=== PATIENT | male | born 1955 | race Caucasian/White ===

== ENCOUNTER 2023-11-19 09:15 | Emergency (ER) | payer OTHER ==
[~2023-11-19] VITALS: Ht 188 cm; Wt 113.4 kg
[2023-11-19] MEDS ORDERED: Lidocaine 2% Jelly Uro-Jet UR ONE (10:05)
[2023-11-19] MEDS ORDERED: Tranexamic Acid 1000 MG/10 ML 10ML Vial (SDV) TOP ONE (10:05)
[2023-11-19 10:20] LABS: BASOPHILS ABSOLUTE AUTO 0.09 K/mm3 (0.00-0.23); BASOPHILS PERCENT AUTO 0 % (0-2); EOSINOPHILS ABSOLUTE AUTO 0.04 K/mm3 (0.00-0.68); EOSINOPHILS PERCENT AUTO 0 % (0-6); Hematocrit 44.3 % (37.0-53.0); Hemoglobin 16.2 g/dL (13.5-17.5); IMMATURE GRAN ABSOLUTE AUTO 0.24 K/mm3 (0.00-0.10); IMMATURE GRAN PERCENT AUTO 1 % (0-1); LYMPHOCYTES ABSOLUTE AUTO 2.02 K/mm3 (0.84-5.20); LYMPHOCYTES PERCENT AUTO 10 % (21-46); MONOCYTES ABSOLUTE AUTO 0.58 K/mm3 (0.16-1.47); MONOCYTES PERCENT AUTO 3 % (4-13); Mean Corpuscular HGB 31.3 pg (26.0-34.0); Mean Corpuscular HGB Conc 36.6 g/dL (31.5-36.5); Mean Corpuscular Volume 86 fL (80-100); Mean Platelet Volume 9.6 fL (9.1-12.4); NEUTROPHILS ABSOLUTE AUTO 17.32 K/mm3 (1.96-9.15); NEUTROPHILS PERCENT AUTO 85 % (41-73); Platelet Count 279 K/mm3 (150-400); RDW Coefficient Variation 13.7 % (11.7-14.2); RDW Standard Deviation 42.4 fL (35.1-46.3); Red Blood Cell Count 5.18 M/mm3 (4.30-5.90); White Blood Cell Count 20.29 K/mm3 (4.00-11.30)
[2023-11-19 10:26] LABS: Source, Urine Foley catheter
[2023-11-19 10:38] LABS: Appearance, Urine Bloody (Clear); Bilirubin, Urine Neg (Neg); Blood, Urine 5+ (Neg); Color, Urine Red (P-Yellow); Glucose Qualitative, Urine 3+ (Neg); Ketones, Urine 1+ (Neg); Leukocyte Esterase, Urine 1+ (Neg); Nitrite, Urine Neg (Neg); Protein, Urine 4+ (Neg); Urobilinogen, Urine NORM (Normal)
[2023-11-19 10:38] LABS: International Normalized Ratio 3.02; Prothrombin Time Results 29.8 Sec (9.7-11.5)
[2023-11-19 10:42] LABS: Bacteria Not Seen /hpf; Red Blood Cells, Urine TNTC /hpf (0-2); Squamous Epithelial Cells Not Seen /hpf (Few)
[2023-11-19 10:43] LABS: Albumin, Blood 4.6 g/dL (3.4-5.0); Albumin/Globulin Ratio 1.2 (0.8-1.8); Bilirubin, Total 0.9 mg/dL (0.1-1.0); Bun/Creatinine Ratio 24.3 (12.0-20.0); Calcium, Blood 9.6 mg/dL (8.5-10.1); Creatinine, Blood 1.03 mg/dL (0.60-1.20); Globulin, Blood 3.9 g/dL (2.2-4.0); Total Protein, Blood 8.5 g/dL (6.4-8.2)
[2023-11-19 13:15] LABS: Calcium, Ionized (POC) 1.11 mmol/L (1.10-1.46); Chloride (POC) 99 mmol/L (98-108); Creatinine (POC) 0.9 mg/dL (0.8-1.3); Glucose (ISTAT POC) 271 mg/dL (70-99); Hemoglobin (POC) 13.9 g/dL (13.5-17.5); Sodium (POC) 139 mmol/L (135-148); Total CO2 (POC) 26 mmol/L (21-32)
[2023-11-19 14:00] VITALS: BP 175/96
== END 2023-11-19 14:15 | disposition home or self-care (01) ==
LOC: ER 09:15
PROVIDERS: Emergency Medicine
DX: R31.9 Hematuria, unspecified (principal); Z79.01 Long term (current) use of anticoagulants
CPT/HCPCS: 51700; 51798; 80047; 80053; 81001; 85014; 85025; 85610; 87086; 99284-25

== ENCOUNTER 2024-08-21 07:10 | Day surgery (SDC) | payer OTHER ==
[~2024-08-21] VITALS: Ht 190.5 cm; Wt 119.7 kg
[~2024-08-21 07:10] MED LIST: AMLO10 PO; ATEN100 PO; BASAGLAR K100 UNIT/1 SC; CATAPRES0.2 M1 PO; Lactated Ringer's 1,000 ML IV SCH; METF500 PO; OZEMPIC0.25 MG/02; POTCHL20ER PO; WARF5 PO; ZESTORETIC 20-1 EAC2 PO
--- NOTE | 2024-08-21 07:11 | NUR ---
08/21/24 [address] ROSS, SEE ANESTHESIA RECORDS.
--- NOTE | 2024-08-21 07:31 | NUR ---
History, Chart, Medications and Allergies reviewed before start of procedure. Patient confirms NPO status and agrees with scheduled surgery. Patient States Post-Procedure ride home has been arranged with either [place], or [place], who are friends of patient.
[2024-08-21 07:44] VITALS: BP 132/75
[2024-08-21] MEDS ORDERED: propofoL 50 ML IV ONE (08:05)
[2024-08-21 08:36] VITALS: BP 118/72
--- NOTE | 2024-08-21 08:36 | NUR ---
PT TO DAY SURGERY STEP DOWN COLONOSCOPY; BEDSIDE REPORT RECEIVED. PT IS AWAKE, ALERT AND ORIENTED; ABLE TO MOVE SELF IN BED. NO COMPLAINTS.
--- NOTE | 2024-08-21 08:51 | NUR ---
PT DECLINES PO FLUIDS. Discharge instructions reviewed with patient. Patient verbalizes understanding. Copy given to patient to take home. Patient States Post-Procedure ride home has been arranged.
[2024-08-21 08:54] VITALS: BP 120/80
[2024-08-21 09:02] VITALS: BP 125/76
--- NOTE | 2024-08-21 09:11 | NUR ---
Patient up to Ambulate independently. Gait steady. Discharged via wheelchair to private car for ride home.
== END 2024-08-21 09:12 | disposition home or self-care (01) ==
LOC: ORSCMMR 07:10 → ORD 08:00 → ORSCMMR 08:00
PROVIDERS: Internal Medicine Gastroenterology
PROC: 0DBL8ZX Excision of Transverse Colon, Via Natural or Artificial Opening Endoscopic, Diagnostic (ICD-10-PCS; principal; 2024-08-21 08:00)
PROC: 0DBK8ZX Excision of Ascending Colon, Via Natural or Artificial Opening Endoscopic, Diagnostic (ICD-10-PCS; principal; 2024-08-21 08:00)
PROC: 0DBH8ZX Excision of Cecum, Via Natural or Artificial Opening Endoscopic, Diagnostic (ICD-10-PCS; principal; 2024-08-21 08:00)
DX: Z12.11 Encounter for screening for malignant neoplasm of colon (principal); D12.0 Benign neoplasm of cecum; D12.2 Benign neoplasm of ascending colon; D12.3 Benign neoplasm of transverse colon; K64.8 Other hemorrhoids; Z86.0100 Personal history of colon polyps, unspecified; I48.20 Chronic atrial fibrillation, unspecified; E11.9 Type 2 diabetes mellitus without complications; Z85.51 Personal history of malignant neoplasm of bladder; I10 Essential (primary) hypertension; G47.33 Obstructive sleep apnea (adult) (pediatric); E66.9 Obesity, unspecified; Z68.33 Body mass index [BMI] 33.0-33.9, adult; Z79.84 Long term (current) use of oral hypoglycemic drugs; Z79.01 Long term (current) use of anticoagulants; Z79.85 Long-term (current) use of injectable non-insulin antidiabetic drugs; Z79.899 Other long term (current) drug therapy
CPT/HCPCS: 82947; 88305; J2704; J7120

== ENCOUNTER 2025-01-14 18:30 | Emergency (ER) | payer OTHER ==
[~2025-01-14] VITALS: Ht 190.5 cm; Wt 117.9 kg
[~2025-01-14 18:30] MED LIST changes: -Lactated Ringer's 1,000 ML IV SCH
[2025-01-14 22:07] VITALS: BP 160/82
== END 2025-01-14 22:07 | disposition home or self-care (01) ==
LOC: ER 18:30
DX: S91.119A Laceration without foreign body of unspecified toe without damage to nail, initial encounter (principal); D68.318 Other hemorrhagic disorder due to intrinsic circulating anticoagulants, antibodies, or inhibitors; X58.XXXA Exposure to other specified factors, initial encounter; Z88.0 Allergy status to penicillin; Z88.1 Allergy status to other antibiotic agents; Z79.899 Other long term (current) drug therapy; Z79.891 Long term (current) use of opiate analgesic; Z79.890 Hormone replacement therapy; Z79.51 Long term (current) use of inhaled steroids; Z79.52 Long term (current) use of systemic steroids; Z79.83 Long term (current) use of bisphosphonates; Z79.84 Long term (current) use of oral hypoglycemic drugs; Z79.1 Long term (current) use of non-steroidal anti-inflammatories (NSAID)
CPT/HCPCS: 12001; 99282-25

== ENCOUNTER 2025-03-21 21:13 | Emergency (ER) | payer OTHER ==
[~2025-03-21] VITALS: Ht 190.5 cm; Wt 114.3 kg
[2025-03-21 22:59] LABS: BASOPHILS ABSOLUTE AUTO 0.04 K/mm3 (0.00-0.23); BASOPHILS PERCENT AUTO 0 % (0-2); EOSINOPHILS ABSOLUTE AUTO 0.06 K/mm3 (0.00-0.68); EOSINOPHILS PERCENT AUTO 0 % (0-6); Hematocrit 31.6 % (37.0-53.0); Hemoglobin 10.7 g/dL (13.5-17.5); IMMATURE GRAN PERCENT AUTO 1 % (0-1); LYMPHOCYTES PERCENT AUTO 8 % (21-46); MONOCYTES PERCENT AUTO 6 % (4-13); Mean Corpuscular HGB Conc 33.9 g/dL (31.5-36.5); Mean Corpuscular Volume 86 fL (80-100); Mean Platelet Volume 9.2 fL (9.1-12.4); NEUTROPHILS ABSOLUTE AUTO 12.54 K/mm3 (1.96-9.15); NEUTROPHILS PERCENT AUTO 84 % (41-73); Platelet Count 339 K/mm3 (150-400); RDW Coefficient Variation 13.2 % (11.7-14.2); RDW Standard Deviation 41.5 fL (35.1-46.3); Red Blood Cell Count 3.69 M/mm3 (4.30-5.90); White Blood Cell Count 14.84 K/mm3 (4.00-11.30)
[2025-03-21 23:16] LABS: International Normalized Ratio 2.01
[2025-03-21 23:24] LABS: Albumin, Blood 2.7 g/dL (3.4-5.0); Albumin/Globulin Ratio 0.6 (0.8-1.8); Bilirubin, Total 0.9 mg/dL (0.1-1.0); Bun/Creatinine Ratio 17.3 (12.0-20.0); Calcium, Blood 9.3 mg/dL (8.5-10.1); Creatinine, Blood 1.5 mg/dL (0.60-1.20); Globulin, Blood 4.4 g/dL (2.2-4.0); Potassium, Blood 3.9 mmol/L (3.5-5.5); Total Protein, Blood 7.1 g/dL (6.4-8.2)
[2025-03-22 03:34] LABS: Source, Urine Foley catheter
[2025-03-22 03:55] LABS: Appearance, Urine Bloody (Clear); Bilirubin, Urine Neg (Neg); Blood, Urine 5+ (Neg); Color, Urine Red (P-Yellow); Glucose Qualitative, Urine 1+ (Neg); Ketones, Urine 1+ (Neg); Leukocyte Esterase, Urine 3+ (Neg); Nitrite, Urine Neg (Neg); Protein, Urine 4+ (Neg); Urobilinogen, Urine NORM (Normal); pH, Urine 6.5 (5.0-8.0)
[2025-03-22 04:07] LABS: Bacteria Many /hpf; Red Blood Cells, Urine TNTC /hpf (0-2); Squamous Epithelial Cells Mod /hpf (Few); White Blood Cells, Urine TNTC /hpf (0-5)
[2025-03-22] MEDS ORDERED: CefTRIAXone Sodium 1,000 MG in NS 50 ML IV ONE (05:35)
[2025-03-22] MEDS ORDERED: NS 1,000 ML IV SCH (05:35)
[2025-03-22] MEDS ORDERED: Lidocaine 2% Jelly Uro-Jet TOP ONE (06:05)
[2025-03-22 07:45] VITALS: BP 152/100
== END 2025-03-22 07:45 | disposition home or self-care (01) ==
LOC: ER 21:13
PROVIDERS: Student in an Organized Health Care Education/Training Program
DX: N39.0 Urinary tract infection, site not specified (principal); R31.9 Hematuria, unspecified; I10 Essential (primary) hypertension; G47.33 Obstructive sleep apnea (adult) (pediatric); E11.9 Type 2 diabetes mellitus without complications; I48.91 Unspecified atrial fibrillation; Z48.816 Encounter for surgical aftercare following surgery on the genitourinary system; Z79.4 Long term (current) use of insulin; Z79.01 Long term (current) use of anticoagulants; Z79.84 Long term (current) use of oral hypoglycemic drugs; Z88.0 Allergy status to penicillin; Z88.1 Allergy status to other antibiotic agents
CPT/HCPCS: 51700; 51798; 80053; 81001; 85025; 85610; 87086; 93005; 93010; 96365; 99283-25; J0696; J7030